=== PATIENT | female | born 1995 | race Caucasian/White ===

== ENCOUNTER 2019-09-29 10:50 | Outpatient (RCR) | payer OTHER, SELFPAY ==
[2019-10-01] MEDS: RHO(D) IMMUNE GLOBULIN 300 MCG SYRINGE IM (15:19)
== END 2019-12-23 23:59 | disposition home or self-care (01) ==
LOC: ANHLAB 10:50
PROVIDERS: Referring Provider Obstetrics & Gynecology; Visit Provider Obstetrics & Gynecology
DX: Z29.13 Encounter for prophylactic Rho(D) immune globulin (principal); O36.0990 Maternal care for other rhesus isoimmunization, unspecified trimester, not applicable or unspecified; Z3A.00 Weeks of gestation of pregnancy not specified
CPT/HCPCS: 36415; 36430; 86850; 90384; 96372; J2790

== ENCOUNTER 2020-10-06 09:43 | Outpatient (RCR) | payer OTHER, SELFPAY | END 2021-01-04 23:59 | disposition home or self-care (01) | LOC: ANHLAB 09:43 | PROVIDERS: Visit Provider Obstetrics & Gynecology | DX: Z32.00 Encounter for pregnancy test, result unknown (principal) | CPT/HCPCS: 36415; 85461 ==

== ENCOUNTER 2020-10-23 07:15 | Inpatient (IN) | payer OTHER, SELFPAY ==
[2020-10-23] VITALS (67 sets, daily range): BP systolic 96–132; BP diastolic 46–89; PULSE 55–112; RESP 16–18; TEMP 36.1–36.7; O2SAT 80–100; BMI 34.4
[2020-10-23] MEDS: AMPICILLIN 2 GM/NS 100 ML 2 GM/100 ML BAG IVPB (08:17)
[2020-10-23] MEDS: LACTATED RINGERS 1,000 ML 999 ML IV CONT (08:18)
[2020-10-23 08:21] LABS: Basophils Percent Auto 0.4 % (0.2-1.2); Eosinophils Absolute Auto 0.2 K/mm3 (0-0.3); Eosinophils Percent Auto 2.3 % (0-4.4); Hematocrit 33.8 % (37.0-47.0); Hemoglobin 10.8 g/dL (12.0-15.0); Lymphocytes Absolute Auto 1.82 K/mm3 (0.9-3.2); Lymphocytes Percent Auto 17.8 % (18.3-44.2); Mean Corpuscular Hemoglobin 25.1 pg (26-34); Mean Corpuscular Volume 78.4 fl (80-100); Mean Platelet Volume 9.4 fl (7.4-10.4); Monocytes Absolute Auto 0.6 K/mm3 (0.1-0.6); Monocytes Percent Auto 6.1 % (2.6-8.5); Neutrophils Absolute Auto 7.4 K/mm3 (1.3-6.7); Neutrophils Percent Auto 72.4 % (45.5-73.1); Platelet Count Result 232 k/mm3 (150-375); Red Blood Count 4.31 M/mm3 (4.2-5.4); Red Cell Distribution Width 12.7 % (11.5-14.5); White Blood Count 10.2 K/mm3 (4.5-10.0)
--- NOTE | 2020-10-23 08:42 | WPDHPUPDATE1 ---
History and Physical Update Update Date/Time: 10/23/20 08:42 25 yo at 38w3d who presents after SROM. she reports good FM. She reports ctx every 5-10 min. Her has been uncomplicated overall. History and Physical has been reviewed, including an updated exam of the patient. There are NO changes in the patient's condition. Risks, benefits, and alternatives have been discussed and questions answered. Patient agrees to proceed with procedure. A/P: 25 yo at 38w3d after SROM Rh neg, will need Rhogam after delivery GBS neg cvx 4-5 cm, forebag ruptures for clear fluid Ctx q 5-10 on toco FHT cat 1 continuous EFM expectant management, will augment with pitocin if no cervical change
[2020-10-23] MEDS: LACTATED RINGERS 1,000 ML 125 ML IV CONT ×2 (08:52→09:43)
--- NOTE | 2020-10-23 09:11 | WPDANESEPPF ---
Anes - Initial Pre Proc Eval Date/Time: 10/23/20 09:11 Surgeon: Solo Oleary MD Pre Op Diagnosis: Labor Patient Data Age: 25 Gender: F Height: Weight: Last Vital Signs Temp 36.3 C L 10/23/20 07:27 Pulse 76 10/23/20 09:10 BP 103/54 L 10/23/20 09:10 Pulse Ox 100 10/23/20 09:09 Allergies Allergy/AdvReac Type Severity Reaction Status Date / Time POLLEN Allergy Sneezing Uncoded 10/18/20 14:39 Home Medications Medication Instructions Recorded Confirmed Type PNV cmb#95-ferrous fumarate-FA 1 tablet PO DAILY 10/14/19 10/14/19 History [] fluoxetine [Prozac] 20 mg PO DAILY 10/14/19 10/14/19 History fluoxetine 40 mg PO DAILY 10/18/20 History Laboratory Tests 10/23/20 08:08 WBC 10.2 K/mm3 H K/mm3 (4.5-10.0) RBC 4.31 M/mm3 M/mm3 (4.2-5.4) Hgb 10.8 g/dL L g/dL (12.0-15.0) Hct 33.8 % L % (37.0-47.0) MCV 78.4 fl L fl (80-100) MCH 25.1 pg L pg (26-34) MCHC 32.0 g/dl g/dl (32-36) RDW 12.7 % % (11.5-14.5) Plt Count 232 k/mm3 k/mm3 (150-375) MPV 9.4 fl fl (7.4-10.4) Immature Gran % (Auto) 1.0 % H % (0-0.5) Neut % (Auto) 72.4 % % (45.5-73.1) Lymph % (Auto) 17.8 % L % (18.3-44.2) [place] % (Auto) 6.1 % % (2.6-8.5) Eos % (Auto) 2.3 % % (0-4.4) Baso % (Auto) 0.4 % % (0.2-1.2) Lymph # (Auto) 1.82 K/mm3 K/mm3 (0.9-3.2) [place] # (Auto) 0.6 K/mm3 K/mm3 (0.1-0.6) Eos # (Auto) 0.2 K/mm3 K/mm3 (0-0.3) Baso # (Auto) 0.0 K/mm3 K/mm3 (0.0-0.1) Abs Immat Gran (auto) 0.10 K/mm3 H K/mm3 (0.00-0.031) Absolute Neuts (auto) 7.4 K/mm3 H K/mm3 (1.3-6.7) Absolute Nucleated RBC 0.0 K/mm3 K/mm3 (0.0-0.012) Nucleated RBC % 0.0 % % (0.0-0.2) Patient hx anesthesia problems: none Family hx anesthesia problems: none PMFSH Family History Family History Other Unknown family medical history Social History Social History Smoking status: Never smoker Second hand tobacco smoke exposure: No Substance use: never Spiritual care concerns: No Anes - Eval Final PreProcedure Day of Procedure 10/23/20 09:11 Patient weight: obese Heart: regular rate and rhythm Lungs: clear to auscultation Neurological: alert and oriented ASA classification: II Emergent: no Anesthetic plan: proceed Anesthesia type and monitoring: regional epidural and standard monitoring Informed Consent: The patient's anesthetic plan and its attendant risks and benefits were discussed with the patient/family/POA. Questions were solicited and answers provided to the satisfaction of the patient/family/POA.
[2020-10-23] MEDS: OXYTOCIN 30 UNITS/NS 500 ML 30 UNITS/500 ML BAG 999 UNITS IV CONT (11:11)
--- NOTE | 2020-10-23 11:15 | PM.OBPRVD ---
OB - Delivery Note Procedure Delivery date: 10/23/20 Procedure: Patient pushed for a spontaneous vaginal delivery. The fetus was delivered atraumatically and placed on the maternal abdomen. The cord was clamped and cut after 1 minute of life. The cord was double clamped and cut and a segment of cord was collected for cord gases. Cord blood was collected for blood type and Coomb's testing. The placenta delivered spontaneously and was noted to be intact. The perineum was inspected and there were no lacerations noted. The uterus was firm and good hemostasis was noted. The patient and fetus were stable in the delivery room. Intrapartal events: None Induction method: none Delivery monitor: external FHT Route of delivery: Episiotomy description: None Laceration Description: None Specimen: No Quantitative Blood Loss: 250 Anesthesia type: Epidural Disposition: floor () Complications: No immediate complications Baby Date of : 10/23/20 Time of : 11:05 Weeks of gestation at delivery: 38 Infant gender: Female Weight (pounds): 6 Weight (ounces): 14 presentation: vertex position: Right Occiput Anterior Placenta delivery description: Spontaneous cord vessel description: 3 Vessels score one minute: 9 score five minutes: 9
[2020-10-23] MEDS: OXYTOCIN 30 UNITS/NS 500 ML 30 UNITS/500 ML BAG 125 UNITS IV CONT (11:50)
--- NOTE | 2020-10-23 12:39 | LDADM ---
This patient, Angelic Weston, was admitted to Labor/Delivery/Recovery 107 on 10/23/20 at 07:15. Plans for labor, pain management and were discussed with patient. Patient/family oriented to hospital policies and general routines including ID bracelet, bed and alarms, visiting hours, pain management, procedures, bathroom and other care routines, personal items, smoking policy, room service/diet and guest tray routines, security routines, and visiting hours. Patient/Family are encouraged to report perceived risks to care and to ask questions if they do not understand what they are told or what they should do. See OBIX for further documentation.
--- NOTE | 2020-10-23 15:15 | PC.NURSE ---
Pt admitted to room 286 per wheelchair from labor and delivery after spontaneous vaginal delivery of viable female infant at [address] Schwartz. Pt is a now, and is choosing to breast feed . /FOB present. Couple oriented to room, staffing and procedures; admision folder reviewed with them, including Mother-Baby Guide.Pt's VSS and assessment WNL.
[2020-10-23] MEDS: WITCH HAZEL 40 PADS 1 PAD TOPICAL (16:19)
[2020-10-23] MEDS: DOCUSATE SODIUM 100 MG CAPSULE PO (16:20)
[2020-10-23] MEDS: BENZOCAINE 20% AER SPR (*SP) 56 GM CAN 1 SPRAY TOPICAL (16:20)
[2020-10-23] MEDS: IBUPROFEN 600 MG TABLET PO (16:21)
[2020-10-23] MEDS: ACETAMINOPHEN 325 MG TABLET 650 MG PO (16:21)
[2020-10-23] MEDS: FLUoxetine HCL 20 MG CAPSULE 60 MG PO (22:06)
[2020-10-24] MEDS: ACETAMINOPHEN 325 MG TABLET 650 MG PO (03:29)
[2020-10-24] MEDS: IBUPROFEN 600 MG TABLET PO (03:30)
[2020-10-24 05:42] LABS: Hematocrit 31.2 % (37.0-47.0); Hemoglobin 10.1 g/dL (12.0-15.0)
--- NOTE | 2020-10-24 07:04 | WPDANLDPN2 ---
Anes-Prog Note L&D Date/Time: 10/24/20 07:04 Comfortable throughout: labor and delivery Neuraxial method: epidural Epidural/Spinal procedure site: clean & non-tender Neuro status: Neuro function grossly intact. Cardiovascular status: normal Respiratory status: normal Airway patency: baseline Mental status: baseline Post-Op hydration status: normal Vital Signs: Last Vital Signs Temp 36.7 C 10/23/20 18:40 Pulse 76 10/23/20 18:40 Resp 18 10/23/20 18:40 BP 131/76 10/23/20 18:40 Pulse Ox 100 10/23/20 18:40 Pain score (VAS): 11/27 I/O: Intake & Output 10/23/20 10/23/20 10/24/20 15:59 23:59 07:59 Intake Total 2600 500 Balance 2600 500 Post-procedural complaints: none Patient feedback: Patient satisfied with anesthetic care.
[2020-10-24 08:05] VITALS: BP 127/83; PULSE 74; RESP 16; TEMP 36.6; O2SAT 99
[2020-10-24] MEDS: MULTIVIT/MIN/PREN/FOL AC/IRON TABLET 1 TAB PO (08:20)
--- NOTE | 2020-10-24 08:20 | PC.NURSE ---
Patient viewed the discharge video Mother & Baby Care, The First Two Weeks . Patient was given the opportunity and encouraged to ask questions. Patient verbalized understanding of information shared and has been given the mother/baby guide for home reference.
--- NOTE | 2020-10-24 08:48 | PM.OBPNVD ---
OB - PN: Subj Subjective Date/time seen: 10/24/20 08:48 Narrative: Pain OK. Would like to go home. OB - PN: Obj Data Labs CBC & Chem 7: 10/24/20 05:09 Labs: Laboratory Results - last 24 hr 10/23/20 10/24/20 10/24/20 08:00 05:09 05:09 Hgb 10.1 L Hct 31.2 L Blood Type O Negative O Negative Antibody Screen Negative TNP OB - PN A/P Plan Comments: A: PPD#1, doing well. P: Home to f/u 6 weeks. Exam Psych: Other: AVSS ABD soft, nontender, fundus firm EXT nontender
--- NOTE | 2020-10-24 08:49 | PM.OBDSVD ---
DS: Admitting Diagnosis Admitting Diagnosis Admitting Diagnosis: Labor DS: Discharge Diagnosis Discharge Diagnosis (1) (normal spontaneous vaginal delivery): Code(s): O80 - Encounter for full-term uncomplicated delivery Status: Acute OB - DS: Summary OB Procedures : None OB Procedures Intrapartum: Spontaneous Vag Delivery OB Procedures: : RHo (D) lg DS: Data Data Completed and Pending Labs on day of discharge: Labs from last 24 hours 10/24/20 10/24/20 10/23/20 05:09 05:09 08:00 Hgb 10.1 L Hct 31.2 L RPR Blood Type O Negative O Negative Antibody Screen TNP Negative Screen Pending Baby's Blood Type Pending Baby's [place] Pending Doses of RhIg Required Pending 10/23/20 08:00 Hgb Hct RPR Pending Blood Type Antibody Screen Screen Baby's Blood Type Baby's [place] Doses of RhIg Required Discharge Plan Discharge Attending physician on discharge: Solo Oleary Discharging Clinician: Solo Oleary Patient Disposition: Home, Self-Care Activity: pelvic rest Diet: regular Discharge Instructions: Call or return if temperature above 100.4? F, increased abdominal pain, increased vaginal bleeding or any new problems. Stand Alone Forms: General Discharge Information Follow-up/Referrals: Solo Oleary MD [Physician] - 6 Weeks Discharge Medications: New ibuprofen 600 mg tablet 600 mg PO Q6H PRN (Reason: cramps) Qty: 30 RF: 0 No Action fluoxetine 20 mg tablet 40 mg PO DAILY RF: 0 fluoxetine [Prozac] 20 mg Capsule 20 mg PO DAILY RF: 0 PNV cmb#95-ferrous fumarate-FA [] 28 mg iron- 800 mcg Tablet 1 tablet PO DAILY RF: 0 Date of admission: 10/23/20 07:15 Primary Care Provider: PHYSICIAN,ELECTRONIC PAGINATION SYSTEM OPERATOR Admitting Provider: Solo Oleary Attending physician on admission: Solo Oleary
[2020-10-24] MEDS: RHO(D) IMMUNE GLOBULIN 300 MCG SYRINGE IM (11:53)
[2020-10-24 13:31] LABS: Rapid Plasma Reagin Non-Reactive (NonReactive)
[2020-10-26 10:25] VITALS: BP 120/75; PULSE 80; RESP 16; TEMP 36.6; O2SAT 99
== END 2020-10-24 12:28 | disposition home or self-care (01) | DRG 807 ==
LOC: ANHLDR 07:39 → ANHOB2 14:24
PROVIDERS: Admitting Provider Student in an Organized Health Care Education/Training Program; Visit Provider Obstetrics & Gynecology
DX: O36.0930 Maternal care for other rhesus isoimmunization, third trimester, not applicable or unspecified (principal); Z37.0 Single live birth; O99.214 Obesity complicating childbirth; E66.9 Obesity, unspecified; Z3A.38 38 weeks gestation of pregnancy
CPT/HCPCS: 36415; 85014; 85018; 85025; 85460; 85461; 86592; 86850; 86900; 86901; 90384; A9270; J0290; J2590; J2790; J2795; J7120

== ENCOUNTER 2023-02-05 00:09 | Day surgery (SDC) | payer OTHER, SELFPAY ==
[2023-01-23 14:46] VITALS: BMI 24.9
--- NOTE | 2023-01-23 14:49 | PC.NURSE ---
Report to the Outpatient Waiting Room, entrance under the green pavilion located off [facility], at time 0600 on date 02/05/23. Planned Procedure Time: 0730. Time changes happen often and if your time is changed the preop area will call you the afternoon before. - You and your visitor will be asked to self-screen and do not enter if you have any COVID symptoms. - Only one visitor is requested with a max of two and NO children visitors are allowed at this time. - The patient visitor may be requested to leave or wait in car when not with patient due to distancing restrictions. - A mask is optional within the hospital at this time. Patients may have clear liquids (water, carbonated beverages, clear teas, apple juice) until 3 hours prior to surgery with a maximum of 20 ounces. - No food from midnight until time of surgery Take the following medications with a SIP of water the morning of surgery: WELLBUTRIN DO NOT STOP ANY OF YOUR OTHER PRESCRIPTION MEDICATIONS PRIOR TO SURGERY EXCEPT THE FOLLOWING Medications to discontinue per physician: N/A Date to take last dose: N/A Please no make-up, nail egyptian, hairspray, perfume, deodorant, or body powder the day of surgery. No jewelry (including any body piercings) or valuables the day of surgery, leave them at home. Please take a shower or bath the night before, or the morning of, surgery with an antibacterial soap. Wear comfortable, loose fitting clothing. - Jewelry must be removed prior to entering the operating room. Rings and piercings that are not removed may be cut off. - The hospital will not accept responsibility for valuables. - Please leave all valuables, including medications, at home the day of surgery. If you are going home after surgery, a licensed wedding transportation driver must drive you home. - NO public transportation without another adult if you receive anesthesia. - We recommend that an adult stay with you for 24 hours following discharge. - We also recommend that you do not drive, make important decision, drink alcoholic beverages, or take any drugs that were not prescribed by your health care provider for at least 24 hours after your discharge time. Follow any additional instructions given to you from your surgeon. If you or anyone in your household have experienced Covid symptoms in the past week, please notify your surgeon or the nurse liaison at the phone number below for possible testing. Telephone instructions given to MICHELL JIM and asked if any additional questions and then verbalized understanding. Patient advised to call surgeon office or pre surgery nurse liaison [phone] if any additional questions.
--- NOTE | 2023-02-04 09:11 | P.PNAN_ITS ---
Anes - Initial Pre Proc Eval Procedure: Operation Date: 02/05/23 07:30 Proposed Procedures p Bilateral Breast Augmentation, - Wilner Byrd MD s Bilateral Breast Mastopexy - Wilner Byrd MD Date/Time: 02/04/23 09:11 Surgeon: Wilner Byrd MD Pre Op Diagnosis: micromastia, skin laxity Patient Data Age: 27 Gender: F Height: 1.63 m Weight: 65.8 kg Allergies Allergy/AdvReac Type Severity Reaction Status Date / Time POLLEN Allergy Sneezing Uncoded 01/23/23 14:45 Home Medications Medication Instructions Recorded Confirmed Type bupropion HCl 300 mg 24 hr tablet, 300 mg PO QAM 01/23/23 01/23/23 History extended release (Wellbutrin XL) Patient hx anesthesia problems: none Family hx anesthesia problems: none Results Review: All pre-operative results and documents have been reviewed as part of the pre- operative evaluation. [facility] Past Medical History Medical History (Updated 02/04/23 @ 09:11 by Anthony Silva DO) Anxiety Depression Family History Family History Other Unknown family medical history Social History Social History Smoking status: Never smoker Second hand tobacco smoke exposure: No Alcohol intake: current Drinks per week: 5 Substance use: never Substance use type: does not use Living arrangements: with family Spiritual care concerns: No Anes - Eval Final PreProcedure Day of Procedure 02/04/23 09:11 Patient weight: normal Heart: regular rate and rhythm Lungs: clear to auscultation Airway: Mallampati scale class II Neurological: alert and oriented Last oral intake: >/= 8 hours ASA classification: II Emergent: no Anesthetic plan: proceed Anesthesia type and monitoring: general LMA and standard monitoring Results Review: All pre-operative results and documents have been reviewed as part of the pre- operative evaluation. Informed Consent: The patient's anesthetic plan and its attendant risks and benefits were discussed with the patient/family/POA. Questions were solicited and answers provided to the satisfaction of the patient/family/POA.
[2023-02-05] VITALS (9 sets, daily range): BP systolic 118–136; BP diastolic 77–94; PULSE 88–117; RESP 10–20; TEMP 36.3–36.4; O2SAT 96–100
[2023-02-05] MEDS: LACTATED RINGERS 1,000 ML 30 ML IV CONT ×2 (07:00→10:31)
--- NOTE | 2023-02-05 07:20 | WPDHPUPDATE1 ---
History and Physical Update Update Date/Time: 02/05/23 07:20 History and Physical has been reviewed, including an updated exam of the patient. There are NO changes in the patient's condition. Risks, benefits, and alternatives have been discussed and questions answered. Patient agrees to proceed with procedure.
--- NOTE | 2023-02-05 07:24 | P.OP_ITS ---
Procedure Note - Detailed Date of Procedure 02/05/23 Pre-op Diagnosis micromastia, skin laxity Post-op Diagnosis Same Procedure Performed Augmentation Mastopexy Surgeon Wilner Byrd MD Anesthesia General Findings Inverted T Superior pedicle Bilateral Anastasia Schwab SoftTouch 400cc Right REF# [id number] SN [id number] Left REF# [id number] SN [id number] Description of Procedure She is here today for bilateral breast augmentation mastopexy. Previously and again today the risks, benefits, alternatives were discussed in extensive detail. I wanted her to be very realistic about the risks involved as well as expectations. We discussed aftercare and what to monitor for. Made sure answered all of her questions to her satisfaction today and consent was obtained. Marked in the preoperative holding area with their verification. The patient was taken to the operating room placed supine on the operating table. Anesthesia was provided by anesthesiology. A surgical time-out was taken. We cleansed the skin and 1% lidocaine and 0.25% Marcaine with epinephrine was used anesthetize as a field block. She was prepped and draped in a standard sterile fashion. Tegaderm nipple Contreras were placed. A 15 blade used to make an incision just superior to the inframammary fold leaving a cusp of de-epithelized tissue at the t junction. Dissection was continued until the chest wall as identified. I incised the pectoralis major along its inferior border and completely released the inferior border leaving the medial border intact. I created a subpectoral pocket in the appropriate dimensions based on our preoperative planning for the implant. I then copiously irrigated with saline solution and verified a strict hemostasis. Next the use a triple antibiotic and Betadine containing solution to irrigate the pocket. I washed my gloves with the triple antibiotic and Betadine solution. We washed the implant immediately upon opening it with this solution and only opened it when we needed it. I used implant funnel and no-touch technique. The implant was introduced into the pocket using the funnel. Having verified positioning of the implant this was closed using 2-0 PDS. I tailor tacked the breast into position. Placed her in a sitting position. Ve rified the nipple-areolar location based on preoperative planning as well as intraoperative observations and measurements in full agreement. She was placed supine. I de-epithelialized the pedicle. I then removed the inferior central portion of the breast need making sure the implant was well protected. I elevated medial and lateral tissue flaps as well for planned closure. I closed along the IMF with 2-0 Stratafix. Along the vertical with 2-0 PDS. I closed around the areola with 3-0 strata fix. 3-0 Monocryl along the vertical. 3-0 Stratafix along the IMF. I finally closed everything with running subcuticular 4-0 Monocryl and tissue glue. Fluffs and surgical bra were placed. Estimated Blood Loss 30 Drains No Packing No Pathology None sent Complications No immediate complications Condition Stable Disposition PACU
[2023-02-05] MEDS: ceFAZolin 2 GM/D5W 50 ML 2 GM/50 ML BAG IVPB (07:27)
[2023-02-05] MEDS: TRANEXAMIC ACID 1,000MG/ISO100 1,000 MG/100 ML BAG 200 MG IVPB (07:32)
[2023-02-05 07:36] LABS: Urine Cotinine NEGATIVE
[2023-02-05] MEDS: BUPivacaine HCL 0.5% PF 30 ML VIAL INFILTRATE (08:00)
[2023-02-05] MEDS: LIDO 1%/EPINEPHRINE 1:100,000 50 ML VIAL 30 ML INFILTRATE (08:00)
[2023-02-05] MEDS: NACL 0.9% IRRIG POUR BOTTLE 900 ML, GENTAMICIN SULFATE INJ 160 MG, ceFAZolin 2 GM, POVI... IRRIGATION (08:02)
[2023-02-05] MEDS: fentaNYL CITRATE INJ (*CRX) 100 MCG/2 ML VIAL 25 MCG IV PUSH ×4 (10:17→10:47)
[2023-02-05] MEDS: oxyCODONE HCL (*CRX) 5 MG TAB IR PO (11:14)
[2023-02-05] MEDS: ONDANSETRON INJ 4 MG/2 ML VIAL IV PUSH (11:50)
== END 2023-02-05 12:27 | disposition home or self-care (01) ==
PROVIDERS: Visit Provider Surgery Plastic and Reconstructive Surgery
PROC: (CPT 19316; principal; 2023-02-05 07:30)
PROC: (CPT 19316; 2023-02-05 07:30)
DX: Z41.1 Encounter for cosmetic surgery (principal); N64.82 Hypoplasia of breast; L57.4 Cutis laxa senilis; F41.9 Anxiety disorder, unspecified; F32.A Depression, unspecified
CPT/HCPCS: 19316; 19325; 80307; A9270; J0690; J1100; J1170; J1580; J2250; J2405; J2704; J2710; J3010; J7120